=== PATIENT | female | born 1960 | race Caucasian/White ===

== ENCOUNTER 2016-09-13 07:53 | Day surgery (SDC) | payer OTHER ==
[2016-09-13] MEDS ORDERED: LACTATED RINGERS 1,000 ML IV ONE (07:59)
[2016-09-13] MEDS ORDERED: ceFAZolin 1 GM VIAL ONE (08:12)
[2016-09-13] MEDS ORDERED: ACETAMINOPHEN 1,000 MG/100 ML 100 ML IV ONE (08:12)
[2016-09-13] MEDS ORDERED: PROPOFOL 200 MG/20 ML VIAL IVP ONE (09:00)
[2016-09-13] MEDS ORDERED: LIDOCAINE-MPF 2% 5 ML VIAL IM ONE (09:00)
[2016-09-13] MEDS ORDERED: ONDANSETRON 4 MG/2 ML VIAL IVP ONE (09:00)
[2016-09-13] MEDS ORDERED: fentaNYL 100 MCG/2 ML VIAL IVP ONE (09:00)
[2016-09-13] MEDS ORDERED: DEXAMETHASONE 4 MG/ML VIAL IVP ONE (09:00)
[2016-09-13] MEDS ORDERED: MIDAZOLAM 2 MG/2 ML VIAL IVP ONE (09:00)
[2016-09-13] MEDS ORDERED: BUPIVACAINE 0.25% PF 30 ML VIAL SUBQ ONE ×2 (09:08→10:03)
[2016-09-13] MEDS: HYDROmorphone 1 MG/ML SYRINGE ONE ×2 (10:25→10:31)
[2016-09-13] MEDS ORDERED: oxyCOD/ACETAMIN 5 MG/325 MG TABLET PO ONE (10:37)
[2016-09-13] MEDS ORDERED: KETOROLAC 15 MG/ML VIAL ONE (10:38)
== END 2016-09-13 07:54 | disposition home or self-care (01) ==
PROC: 01N50ZZ Release Median Nerve, Open Approach (ICD-10-PCS; principal; 2016-09-13 09:20)
PROC: 0LB60ZZ Excision of Left Lower Arm and Wrist Tendon, Open Approach (ICD-10-PCS; 2016-09-13 09:20)
DX: G56.02 Carpal tunnel syndrome, left upper limb (principal); M67.432 Ganglion, left wrist; I71.4 Abdominal aortic aneurysm, without rupture; E03.9 Hypothyroidism, unspecified; Z87.891 Personal history of nicotine dependence; Z85.01 Personal history of malignant neoplasm of esophagus; Z91.89 Other specified personal risk factors, not elsewhere classified
CPT/HCPCS: 25111; 64721; A9270; J0131; J1170; J7120

== ENCOUNTER 2016-10-09 13:32 | Outpatient (CLI) | payer OTHER | END 2016-10-09 13:33 | disposition home or self-care (01) | DX: I77.810 Thoracic aortic ectasia (principal); I51.7 Cardiomegaly; I35.1 Nonrheumatic aortic (valve) insufficiency ==

== ENCOUNTER 2016-10-09 13:33 | Outpatient (CLI) | payer OTHER | END 2016-10-09 13:34 | disposition home or self-care (01) | DX: I71.2 Thoracic aortic aneurysm, without rupture (principal) ==

== ENCOUNTER 2017-05-20 09:19 | Emergency (ER) | payer OTHER ==
--- NOTE | 2017-05-20 09:46 | ED Physician Documentation ---
PD HPI TRUNK INJURY - Stated complaint Stated Complaint: R SIDE BACK/HIP/RIB PX--FALL - Chief complaint Chief Complaint: General - History obtained from History obtained from: Patient, Family - History of Present Illness Location: Posterior chest, Right chest, Lower back Type of injury: Fall Timing - onset: Enter time (1999), Last night Timing - duration: Hours Timing - details: Abrupt onset, Still present Quality: Pain, Spasm, Sharp Improved by: Rest, Immobilization Worsened by: Moving, Palpating Associated symtptoms: No: Weakness, Numbness, Tingling, Swelling, Discoloration , Feel faint, Syncope Contributing factors: No: Anticoagulated Where injury occured: Home Similar symptoms before: Has not had sx before Recently seen: Not recently seen - Additional information Additional information: 57-year-old female was going down the steps with her socks on her arms full when she went to go around the corner of her steps she slipped on the steps fell landing across a step on her right lower back and chest wall. Review of Systems Constitutional: denies: Fever, Chills, Myalgias Eyes: denies: Decreased vision Ears: denies: Ear pain Nose: denies: Congestion Throat: denies: Sore throat Cardiac: denies: Chest pain / pressure, Palpitations Respiratory: denies: Dyspnea, Cough GI: denies: Abdominal Pain, Nausea, Vomiting : denies: Dysuria, Frequency Skin: denies: Rash, Lesions Musculoskeletal: reports: Back pain. 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 HEENT: Tonsil/Adenoidectomy - Present Medications Home Medications: Ambulatory Orders Medication Instructions Recorded Confirmed Calcium Carbonate [Calcium] 500 mg PO DAILY 08/20/16 05/20/17 Cholecalciferol (Vitamin D3) 1,000 unit PO DAILY 08/20/16 05/20/17 [Vitamin D3] Ferrous Sulfate [Iron] 325 mg PO DAILY 08/20/16 05/20/17 Lansoprazole [Prevacid] 30 mg PO DAILY 08/20/16 05/20/17 Levothyroxine [Synthroid] 100 mcg PO QDAC 08/20/16 05/20/17 Zinc 50 mg PO DAILY 08/20/16 05/20/17 HYDROcod/ACETAM 5/325 [[place] 5/325] 1 - 2 ea PO Q6H PRN #15 tablet 05/20/17 - Allergies Allergies/Adverse Reactions: Allergies Allergy/AdvReac Type Severity Reaction Status Date / Time latex Allergy Itching Verified 05/20/17 09:39 - Social History Does the pt smoke?: No Smoking Status: Never smoker Does the pt drink ETOH?: Yes Does the pt have substance abuse?: No PD ED PE NORMAL - Vitals Vital signs reviewed: Yes (hypertensive ) - General General: No acute distress, Well developed/nourished - HEENT HEENT: Atraumatic, PERRL - Neck Neck: Supple, no meningeal sign - Cardiac Cardiac: RRR, Other (1/6 holosystolic murmer at LSB ) - Respiratory Respiratory: No respiratory distress, Clear bilaterally, Other (There is specific tenderness to the right lower chest wall laterally ) - Abdomen Abdomen: Soft, Non tender - Back Back: No CVA TTP, Other (There is specific tenderness and bruising along the right lower lumbar spine with a linear ecchymosis consistent with the mechanism the patient gave. ) - Derm Derm: Normal color, Warm and dry, No rash - Extremities Extremities: No deformity, No edema - Neuro Neuro: No motor deficit, No sensory deficit - Psych Psych: Normal mood, Normal affect Results - Vitals Vitals: Vital Signs - 24 hr 05/20/17 05/20/17 09:30 10:41 Temperature 36.6 C Heart Rate 84 70 Respiratory 19 16 Rate Blood Pressure 149/110 H 125/74 O2 Saturation 100 Oxygen O2 Source Room air - Rads (name of study) Ribs with PA chest right Radiology: Prelim report reviewed (Impression: Postsurgical changes right fifth posterior rib. No acute right rib or lung pathology. Changes in the mediastinum which may reflect prior esophageal and/or aortic surgery. Heart size difficult to assess. Bilateral breast implants.), EMP read indepedently, See rad report Lumbar spine 2 view Radiology: Prelim report reviewed (Impression: 1. 9 mm anterior listhesis of L4 on L5 with degenerative disc space narrowing at this level. 2. Age- indeterminate right L2 and L3 transverse process fractures. 3. Bilateral breast implants. 4. Surgical clips GE junction and changes in the mediastinum likely related to prior esophageal or aortic surgery.) PD MEDICAL DECISION MAKING - ED course Complexity details: reviewed results, re-evaluated patient, considered differential, d/w patient, d/w family ED course: 57-year-old female with a fall on ice stairway has fractured to her vertebral processes and is not have fracture of ribs.Is averse to taking pain medications. I discussed that with the patient the usual course of chest wall contusion rib contusion and lumbar fracture. I have asked the patient to return to the emergency department should she develop enough pain in her back that she requires a brace. Departure - Departure Disposition: 01 Home, Self Care Clinical Impression: Multiple transverse process fractures Chest wall contusion Qualifiers: Encounter type: initial encounter Laterality: right Qualified Code(s): S20.211A - Contusion of right front wall of thorax, initial encounter Condition: Stable Instructions: ED Fx Transverse Spinous Process, ED Contusion Chest Wall Follow-Up: Bryan Louis MD [Primary Care Provider] - Prescriptions: HYDROcod/ACETAM 5/325 [[place] 5/325] 1 - 2 ea PO Q6H PRN #15 tablet PRN Reason: Pain Comments: Today in the Emergency Department your blood pressure was elevated. This can happen from the stress of the visit itself, from a current illness or circumstance or from uncontrolled hypertension. If you take blood pressure medications take your usual mediations, have your blood pressure re-checked in an appropriate setting and follow up any elevation with your primary care doctor.
--- NOTE | 2017-05-20 10:33 | XRAY Preliminary Report ---
Exam: XR RIBS W/PA CHEST RT IMPRESSION: Postsurgical changes right fifth posterior rib. No acute right rib or lung pathology. Hien nges in the mediastinum which may reflect prior esophageal and/or aortic surgery. Heart size difficul t to assess. Bilateral breast implants. [facility] SITE ID: [id number]
--- NOTE | 2017-05-20 10:36 | XRAY Report ---
EXAM: RIGHT RIB RADIOGRAPHY EXAM DATE: 05/20/2017 10:09 AM. CLINICAL HISTORY: Right posterior lower rib contusion/pain. Esophageal cancer. Known thoracic aneurys m. COMPARISON: None. TECHNIQUE: 1 view of the chest and 3 views of the right ribs. FINDINGS: Bones: Postsurgical deformity/absence right fifth posterior rib. No acute fracture or bone lesion. Lungs: No focal opacities. No pneumothorax. No pleural effusions. Mediastinum: Surgical clips projected over the mediastinum and GE junction region. Changes in the med iastinum consistent with esophageal surgery. Heart size difficult to assess. Other: Bilateral breast implants. IMPRESSION: Postsurgical changes right fifth posterior rib. No acute right rib or lung pathology. Hien nges in the mediastinum which may reflect prior esophageal and/or aortic surgery. Heart size difficul t to assess. Bilateral breast implants. [facility] Referring Provider Line: [phone] SITE ID: [id number]
[2017-05-20 10:42] VITALS: BP 125/74
--- NOTE | 2017-05-20 10:45 | XRAY Preliminary Report ---
Exam: XR LUMBAR SPINE 2 VIEW IMPRESSION: 1. 9 mm anterior listhesis L4 on L5 with degenerative disk space narrowing at this level. 2. Age-indeterminate right L2 and L3 transverse process fractures. 3. Bilateral breast implants. 4. Surgical clips GE junction and changes in the mediastinum likely related to prior esophageal or ao rtic surgery. [facility] SITE ID: [id number]
--- NOTE | 2017-05-20 10:48 | XRAY Report ---
EXAM: LUMBOSACRAL SPINE RADIOGRAPHY EXAM DATE: 05/20/2017 10:09 AM. CLINICAL HISTORY: Fall, pain L4 level COMPARISONS: None. TECHNIQUE: 2 views. FINDINGS: Alignment: Grade 1 anterior listhesis L4 on L5 of approximately 9 mm. Alignment otherwise unremarkabl e. Bones: Five [id number] lumbar vertebral bodies are present. Right L2 and L3 age-indeterminate tr ansverse process fractures. Disks: Advanced L4-L5 disk space narrowing. Diskal calcification at L1-L2. Facets: Moderate degenerative change L4-L5 facets. Sacroiliac Joints: Unremarkable. Soft Tissues: Bilateral breast implants. Surgical clips GE junction. Apparent mediastinal widening ma y be related to prior esophageal or aortic surgery. IMPRESSION: 1. 9 mm anterior listhesis L4 on L5 with degenerative disk space narrowing at this level. 2. Age-indeterminate right L2 and L3 transverse process fractures. 3. Bilateral breast implants. 4. Surgical clips GE junction and changes in the mediastinum likely related to prior esophageal or ao rtic surgery. [facility] Referring Provider Line: [phone] SITE ID: [id number]
== END 2017-05-20 12:25 | disposition home or self-care (01) ==
LOC: ED 09:19
DX: S32.029A Unspecified fracture of second lumbar vertebra, initial encounter for closed fracture (principal); S32.039A Unspecified fracture of third lumbar vertebra, initial encounter for closed fracture; S20.211A Contusion of right front wall of thorax, initial encounter; W10.8XXA Fall (on) (from) other stairs and steps, initial encounter; R03.0 Elevated blood-pressure reading, without diagnosis of hypertension; E03.9 Hypothyroidism, unspecified; K21.9 Gastro-esophageal reflux disease without esophagitis; Z85.01 Personal history of malignant neoplasm of esophagus
CPT/HCPCS: 72100; 99283

== ENCOUNTER 2018-03-20 12:32 | Emergency (ER) | payer OTHER ==
[2018-03-20] MEDS ORDERED: TETANUS/DIPHTHERIA/PERTUSSIS 0.5 ML SYRINGE IM ONE (14:01)
[2018-03-20] MEDS ORDERED: BACITRACIN OINT TOP STA (14:25)
--- NOTE | 2018-03-20 14:27 | ED Physician Documentation ---
PD HPI Fall - Stated complaint Stated Complaint: COCHRAN LAC/HEAD INJURY - Chief complaint Chief Complaint: Laceration - History obtained from History obtained from: Patient - History of Present Illness Mechanism of injury: Tripped Fall distance: Standing position Where injury occurred: Park Injury(ies) location: Head, Right Lower Extremity Associated symptoms: No: LOC, Neck pain, Nausea / vomiting Similar symptoms before: Has not had sx before - Additional information Additional information: The patient is a 57-year-old female who was at the park with her black Labrador when he pulled on the leash while she was paying attention to something else, causing her to stumble and fall, hitting her head on concrete. She denies loss of consciousness, nausea or vomiting. In addition to hitting her head she also impacted her right lower extremity on a protruding piece of metal. She has been ambulatory since the incident occurred. She is uncertain of her last tetanus booster. Review of Systems Constitutional: denies: Fever Eyes: denies: Decreased vision Ears: denies: Tinnitus/ringing Nose: denies: Congestion Cardiac: denies: Chest pain / pressure Respiratory: denies: Dyspnea GI: denies: Abdominal Pain, Nausea, Vomiting Skin: reports: Abrasion (s) (right knee.), Laceration (s) (Right cochran.) Musculoskeletal: denies: Neck pain, Back pain Neurologic: reports: Head injury. 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 HEENT: Tonsil/Adenoidectomy - Present Medications Home Medications: Ambulatory Orders Medication Instructions Recorded Confirmed Calcium Carbonate [Calcium] 500 mg PO DAILY 08/20/16 05/20/17 Cholecalciferol (Vitamin D3) 1,000 unit PO DAILY 08/20/16 05/20/17 [Vitamin D3] Ferrous Sulfate [Iron] 325 mg PO DAILY 08/20/16 05/20/17 Lansoprazole [Prevacid] 30 mg PO DAILY 08/20/16 05/20/17 Levothyroxine [Synthroid] 100 mcg PO QDAC 01/10/17 10/10/17 Zinc 50 mg PO DAILY 08/20/16 05/20/17 HYDROcod/ACETAM 5/325 [[place] 5/325] 1 - 2 ea PO Q6H PRN #15 tablet 05/20/17 - Allergies Allergies/Adverse Reactions: Allergies Allergy/AdvReac Type Severity Reaction Status Date / Time latex Allergy Itching Verified 03/20/18 12:48 - Social History Does the pt smoke?: No Smoking Status: Never smoker Does the pt drink ETOH?: Yes Does the pt have substance abuse?: No PD ED PE NORMAL - Vitals Vital signs reviewed: Yes (Systolic hypertension initially.) - General General: Alert and oriented X 3, Well developed/nourished - HEENT HEENT: PERRL, EOMI, Ears normal, Pharynx benign, Other (There is a scalp hematoma on the left frontal region of the scalp. There is no break in the integument, and no bony tenderness to palpation.) - Neck Neck: No bony TTP, Other (Full cervical range of motion without tenderness.) - Cardiac Cardiac: RRR - Respiratory Respiratory: No respiratory distress, Clear bilaterally - Abdomen Abdomen: Soft, Non tender - Back Back: No spinal TTP - Derm Derm: No rash - Extremities Extremities: Other (Superficial abrasions are noted at the infrapatellar aspect of the right leg. There is a 4 cm irregularly shaped laceration of the right cochran.) - Neuro Neuro: Alert and oriented X 3, No motor deficit, No sensory deficit Results - Vitals Vitals: Oxygen O2 Source Room air Procedures - Laceration (location) right cochran Length in cm: 4 Wound type: Irregular, Into subcut fat Neurovascular status: Sensory intact, Motor intact, Vascular intact Anesthesia: Lidocaine 1% with epi Wound Preparation: Hibiclens, Irrigated copiously NS, Wound explored, To the base. No: FB identified Skin layer closure: Nylon, Interrupted, Size #-0 - enter number (5), Sutures - enter # (6) Other: Patient tolerated well, No complications, Neurovascular intact, Dressing applied, Tetanus booster given Complexity: Simple PD MEDICAL DECISION MAKING - ED course Complexity details: re-evaluated patient, considered differential, d/w patient, d/w family ED course: The patient's presentation is significant for scalp contusion, without evidence of intracranial head injury. In addition she has a laceration and abrasion to her right lower extremity. Treatment in the emergency department included repair of the laceration after local anesthetic and thorough cleaning of the wound. Antibiotic ointment and gauze dressing was applied. Tetanus booster was administered. I discussed with the patient and her the expected course of injury, appropriate wound care and timing for suture removal, as well as potentially worrisome signs or symptoms that should prompt reevaluation in the emergency department. - Sepsis Event Vital Signs: Oxygen O2 Source Room air Departure - Departure Disposition: 01 Home, Self Care Clinical Impression: Scalp contusion Qualifiers: Encounter type: initial encounter Qualified Code(s): S00.03XA - Contusion of scalp, initial encounter Laceration of leg Qualifiers: Encounter type: initial encounter Laterality: right Qualified Code(s): S81.811A - Laceration without foreign body, right lower leg, initial encounter Condition: Stable Instructions: ED Contusion Scalp, ED Laceration Ext Sutr Stap Tape Follow-Up: DEBI HARGROVE DO [Primary Care Provider] - Comments: Keep the wound clean, and apply antibiotic ointment daily. You can use Tylenol or ibuprofen if needed for discomfort. Apply ice pack to the scalp contusion intermittently for the next day or 2. Follow-up for suture removal in 10-12 days. Return to the emergency department if you develop increasing headache, persistent vomiting, or any sign of infection. Discharge Date/Time: 03/20/18 14:49
[2018-03-20 14:48] VITALS: BP 151/78
== END 2018-03-20 14:49 | disposition home or self-care (01) ==
LOC: ED 12:32
DX: S00.03XA Contusion of scalp, initial encounter (principal); S81.811A Laceration without foreign body, right lower leg, initial encounter; X50.9XXA Other and unspecified overexertion or strenuous movements or postures, initial encounter; W01.118A Fall on same level from slipping, tripping and stumbling with subsequent striking against other sharp object, initial encounter; W54.8XXA Other contact with dog, initial encounter; Y92.830 Public park as the place of occurrence of the external cause; Z23 Encounter for immunization
CPT/HCPCS: 12002; 90471; 90715; 99282; 99283; A9270

== ENCOUNTER 2019-04-27 13:46 | Outpatient (CLI) | payer OTHER | END 2019-04-27 13:47 | disposition critical access hospital (66) | LOC: EMS 13:46 | PROVIDERS: ATTEND Surgery | DX: R07.89 Other chest pain (principal) | CPT/HCPCS: A0425; A0427 ==

== ENCOUNTER 2019-04-27 14:06 | Emergency (ER) | payer OTHER ==
[2019-04-27 14:16] VITALS: BP 150/77
--- NOTE | 2019-04-27 14:20 | ED Physician Documentation ---
History of Present Illness - Stated complaint Stated Complaint: CP - Chief complaint Chief Complaint: Cardiac - History obtained from History obtained from: Patient - History of Present Illness Timing: Other (58-year-old woman with history of known aortic aneurysm which has been lost to follow-up for the last 5 years, cardiac murmur. For the last 4 days or so she has had intermittent substernal chest pain. It was bad over the weekend but better with exertion. It was not really significant yesterday but a little worse today now radiating to the left shoulder. She denies shortness of breath or nausea. 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 HEENT: Tonsil/Adenoidectomy - Present Medications Home Medications: Ambulatory Orders Medication Instructions Recorded Confirmed Calcium Carbonate [Calcium] 500 mg PO DAILY 08/20/16 05/20/17 Cholecalciferol (Vitamin D3) 1,000 unit PO DAILY 08/20/16 05/20/17 [Vitamin D3] Ferrous Sulfate [Iron] 325 mg PO DAILY 08/20/16 05/20/17 Lansoprazole [Prevacid] 30 mg PO DAILY 08/20/16 05/20/17 Levothyroxine [Synthroid] 100 mcg PO QDAC 08/20/16 05/20/17 Zinc 50 mg PO DAILY 08/20/16 05/20/17 HYDROcod/ACETAM 5/325 [[place] 5/325] 1 - 2 ea PO Q6H PRN #15 tablet 05/20/17 - Allergies Allergies/Adverse Reactions: Allergies Allergy/AdvReac Type Severity Reaction Status Date / Time latex Allergy Itching Verified 04/27/19 14:09 - Social History Does the pt smoke?: No Smoking Status: Never smoker Does the pt drink ETOH?: Yes Does the pt have substance abuse?: No PD ED PE NORMAL - Vitals Vital signs reviewed: Yes - General General: Alert and oriented X 3, No acute distress - HEENT HEENT: PERRL, EOMI - Neck Neck: Supple, no meningeal sign, No bony TTP - Cardiac Cardiac: RRR, Other (Squeaky systolic murmur heard best at the left upper sternal border, 2 out of 6, loud S2.) - Respiratory Respiratory: No respiratory distress, Clear bilaterally - Abdomen Abdomen: Soft, Non tender - Back Back: No CVA TTP, No spinal TTP - Extremities Extremities: No edema, No calf tenderness / cord - Neuro Neuro: Alert and oriented X 3, Normal speech Results - Vitals Vitals: Vital Signs - 24 hr 04/27/19 14:09 Temperature 36.5 C Heart Rate 78 Respiratory 14 Rate Blood Pressure 150/77 H O2 Saturation 99 Oxygen O2 Source Room air - EKG (time done) 1416 Rate: Rate (enter#) (71) Rhythm: NSR [place]: Normal Intervals: Normal [place] QRS: Normal Ischemia: Normal ST segments Computer interpretation: Agree with computer - Labs Labs: Laboratory Tests 04/27/19 04/27/19 04/27/19 14:25 14:25 14:25 WBC 6.1 RBC 3.58 L Hgb 12.0 Hct 36.0 L MCV 100.6 H MCH 33.5 H MCHC 33.3 RDW 12.2 Plt Count 187 MPV 9.3 Neut # (Auto) 4.4 Lymph # (Auto) 1.0 L [place] # (Auto) 0.5 Eos # (Auto) 0.2 Baso # (Auto) 0.0 Absolute Nucleated RBC 0.00 Nucleated RBC % 0.0 Sodium 138 Potassium 3.8 Chloride 99 L Carbon Dioxide 30 Anion Gap 9.0 BUN 17 Creatinine 0.9 Estimated GFR (MDRD) 65 L Glucose 178 H Calcium 10.0 Total Bilirubin 0.6 AST 43 H ALT 25 Alkaline Phosphatase 53 Troponin I High Sens 5.1 Total Protein 6.9 Albumin 4.2 Globulin 2.7 Albumin/Globulin Ratio 1.6 Lipase 34 PD MEDICAL DECISION MAKING - ED course ED course: 3 days of atypical waxing and waning nonexertional chest pain in this lady with a known aortic aneurysm and a history of esophageal cancer status post pull-up. CT shows her aneurysm is not dissected, 4.5 cm. She was advised that she needs to continue surveillance and see a cardiothoracic surgeon as it approaches 5.5 cm. We will perform a second troponin in the department. She did not want to wait for the results and I will call her if positive. The understands that if it is positive he will need to return immediately. Otherwise she has plans to see her physician tomorrow. Departure - Departure Disposition: Home, Self Care Clinical Impression: Chest pain Qualifiers: Chest pain type: chest pain on breathing Qualified Code(s): R07.1 - Chest pain on breathing; R07.81 - Pleurodynia Aortic aneurysm Qualifiers: Aortic location: thoracic aorta Presence of rupture: without rupture Qualified Code(s): I71.2 - Thoracic aortic aneurysm, without rupture Condition: Good Record reviewed to determine appropriate education?: Yes Instructions: ED Chest Pain NonCardiac Comments: As discussed you need a referral eventually to see a cardiothoracic surgeon when your aortic aneurysm approaches 5.5 cm. In the interim continue surveillance for this. Follow-up with your doctor tomorrow.
[2019-04-27 14:33] LABS: BASOPHILS % (AUTO) 0.5 %; EOSINOPHILS # (AUTO) 0.2 10^3/uL (0.0-0.7); EOSINOPHILS % (AUTO) 2.6 %; MEAN CORPUSCULAR HEMOGLOBIN 33.5 pg (27.0-31.0); MEAN CORPUSCULAR HGB CONC 33.3 g/dL (32.0-36.0); MEAN CORPUSCULAR VOLUME 100.6 fL (81.0-99.0); MEAN PLATELET VOLUME 9.3 fL (7.9-10.8); MONOCYTES # (AUTO) 0.5 10^3/uL (0.0-1.0); MONOCYTES % (AUTO) 7.8 %; NEUTROPHILS # (AUTO) 4.4 10^3/uL (1.5-6.6); NEUTROPHILS % (AUTO) 71.6 %; PLT - PLATELET COUNT 187 10^3/uL (130-450); RED BLOOD COUNT 3.58 10^6/uL (4.20-5.40); RED CELL DISTRIBUTION WIDTH 12.2 % (12.0-15.0); WHITE BLOOD COUNT 6.1 x10^3/uL (4.8-10.8)
[2019-04-27] MEDS ORDERED: IOVERSOL 320 100 ML VIAL IVP ONE ×2 (14:33→16:20)
[2019-04-27 14:44] LABS: ALBUMIN 4.2 g/dL (3.2-5.5); ALBUMIN/GLOBULIN RATIO 1.6 (1.0-2.2); BILIRUBIN,TOTAL 0.6 mg/dL (0.2-1.0); CREATININE 0.9 mg/dL (0.4-1.0); TOTAL PROTEIN 6.9 g/dL (6.7-8.2)
--- NOTE | 2019-04-27 16:21 | CT Report ---
Reason: Aorta protocol, chest pain, known aneurysm Procedure Date: 04/27/2019 Accession Number: [id number] / [id number] Procedure: CT - ANGIO CHEST W/WO CPT Code: FULL RESULT: EXAM: CTA CHEST EXAM DATE: 04/27/2019 03:47 PM. CLINICAL HISTORY: Chest pain. Known aneurysm. COMPARISON: 05/20/2017. TECHNIQUE: Prior to and following intravenous administration of OPTI 320 80ML, multiplanar 3D/MIP reconstruction of the thoracic aorta was performed. In accordance with CT protocol optimization, one or more of the following dose reduction techniques were utilized for this exam: automated exposure control, adjustment of mA and/or KV based on patient size, or use of iterative reconstructive technique. FINDINGS: Vascular Structures: Unenhanced images are without evidence for intramural or mediastinal hematoma. Thoracic aortic calcified plaque. Postcontrast there is adequate enhancement of the thoracic aorta. No dissection. Great vessels are widely patent. Noncalcified atheromatous plaque is seen in the descending thoracic aorta and right common carotid artery. No evidence of pulmonary embolus. The sinuses of Valsalva measure 3.6 cm. The sinotubular junction measures 3.2 cm. The proximal ascending thoracic aorta measures 4.5 cm. The distal ascending thoracic aorta measures 4.1 cm. The aortic arch measures 2.8 cm. The proximal descending thoracic aorta measures 2.4 cm. The distal descending thoracic aorta measures 2.3 cm. Lungs/Pleura: No endobronchial obstruction. Scarring is seen in the medial right upper lobe and right lower lobe with associated volume loss and atelectasis. Scar/atelectasis in the medial left lower lobe. No consolidation. No pneumothorax. No vascular congestion. Mediastinum: Heart size upper normal. Trace pericardial effusion. Changes are seen from esophagectomy and gastric pull-up with multiple surgical clips in the mediastinum. Thyroid gland is small. No enlarged mediastinal or hilar lymph nodes. Upper Abdomen: Included portions of the liver, spleen, adrenals, left kidney, pancreas visualized upper abdominal bowel are unremarkable. Surgical clips seen by the GE junction. Surgical clips are seen by the GE junction. Other: Degenerative changes of the thoracic spine. No acute osseous abnormalities are identified. Resection of the right fifth rib is seen likely postsurgical. There are peripherally calcified breast implants present. IMPRESSION: 1. No evidence of aortic dissection. Aneurysmal dilatation of the ascending aorta measuring on the current study 4.5 cm. Mild atheromatous disease of the thoracic aorta. 2. No evidence of pulmonary embolus. 3. Status post esophagectomy and gastric pull-up. 4. Medial right upper lobe and medial right lower lobe and left lower lobe scar/atelectasis. [facility]
== END 2019-04-27 16:49 | disposition home or self-care (01) ==
LOC: EDUNIT# → ED 14:06
DX: R07.1 Chest pain on breathing (principal); R07.81 Pleurodynia; I71.2 Thoracic aortic aneurysm, without rupture; R01.1 Cardiac murmur, unspecified; Z85.01 Personal history of malignant neoplasm of esophagus
CPT/HCPCS: 36415; 71275; 80053; 83690; 84484; 85025; 93005; 99284; Q9967

== ENCOUNTER 2021-09-05 09:11 | Outpatient (CLI) | payer OTHER ==
--- NOTE | 2021-09-12 07:27 | Mammography Report ---
BILATERAL DIGITAL SCREENING MAMMOGRAM 3D/2D WITH AUGMENTATION: 09/05/2021 CLINICAL: Routine screening. Comparison is made to exams dated: 07/12/2011 and 06/10/2011 [facility]. There are scatt ered fibroglandular elements in both breasts. Bilateral breast implants are present. No significant masses, calcifications, or other findings are seen in either breast. There has been no significant interval change. IMPRESSION: NEGATIVE There is no mammographic evidence of malignancy. A 1 year screening mammogram is recommended. This exam was interpreted at Station ID: [id number]. NOTE: For mammograms, a report in lay terms will be sent to the patient. Approximately 15% of breast malignancies will not be visualized mammographically. In the management of a palpable breast mass, a negative mammogram must not discourage biopsy of a clinically suspicious lesion. Electronically Signed By: [place] M.D. ar/cicirad:09/11/2021 09:49:34 ACR BI-RADS Category 1: Negative 3341F PARENCHYMAL PATTERN: (A) - The breast(s) demonstrate(s) scattered fibroglandular densities. BI-RADS CATEGORY: (1) - 1 RECOMMENDATION: (ANNUAL) - Recommend routine annual screening mammography. [id number] 1 year screening LATERALITY: (B)
== END 2021-09-05 09:12 | disposition home or self-care (01) ==
LOC: DI.N 09:11
DX: Z12.31 Encounter for screening mammogram for malignant neoplasm of breast (principal)

== ENCOUNTER 2023-02-22 12:28 | Emergency (ER) | payer OTHER ==
--- NOTE | 2023-02-22 13:16 | XRAY Report ---
PROCEDURE: Hip w/Pelvis 2-3V RT INDICATIONS: GLF TECHNIQUE: AP pelvis with lateral view(s) of the hip(s). COMPARISON: None. FINDINGS: Bones: There is a subcapital right femoral neck fracture with mild impaction of the distal fracture fragments. Lower lumbar spondylosis. Degenerative changes of the bilateral hips. Degenerative changes of the bilateral sacroiliac joints. Soft tissues: No suspicious soft tissue calcifications or masses. IMPRESSION: Mildly impacted subcapital right femoral neck fracture. Reviewed by: Ramon Bueno MD on 02/22/2023 12:14 PM REBECA Approved by: Ramon Bueno MD on 02/22/2023 12:14 PM REBECA Station ID: [id number]
[2023-02-22 13:23] LABS: BASOPHILS # (AUTO) 0.1 10^3/uL (0.0-0.1); BASOPHILS % (AUTO) 0.5 %; EOSINOPHILS # (AUTO) 0.1 10^3/uL (0.0-0.7); HCT - HEMATOCRIT 38.5 % (37.0-47.0); HGB - HEMOGLOBIN 12.9 g/dL (12.0-16.0); LYMPHOCYTES # (AUTO) 0.6 10^3/uL (1.5-3.5); LYMPHOCYTES % (AUTO) 6.5 %; MEAN CORPUSCULAR HEMOGLOBIN 32.9 pg (27.0-31.0); MEAN CORPUSCULAR HGB CONC 33.5 g/dL (32.0-36.0); MEAN CORPUSCULAR VOLUME 98.2 fL (81.0-99.0); MEAN PLATELET VOLUME 9.4 fL (7.9-10.8); MONOCYTES # (AUTO) 0.4 10^3/uL (0.0-1.0); MONOCYTES % (AUTO) 4.3 %; NEUTROPHILS # (AUTO) 8.6 10^3/uL (1.5-6.6); NEUTROPHILS % (AUTO) 87.3 %; PLT - PLATELET COUNT 359 10^3/uL (130-450); RED BLOOD COUNT 3.92 10^6/uL (4.20-5.40); RED CELL DISTRIBUTION WIDTH 12.1 % (12.0-15.0); WHITE BLOOD COUNT 9.8 x10^3/uL (4.8-10.8)
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
[2023-02-22 13:33] LABS: CALCIUM 9.7 mg/dL (8.5-10.3); INR 1.2 (0.8-1.2); POTASSIUM 3.9 mmol/L (3.5-5.0); PT - PROTHROMBIN TIME 13.5 secs (9.9-12.6)
--- OUTSIDE RECORDS SUMMARY | 2023-02-22 13:45 | EXTERNAL MEDICAL SUMMARY RPT | Continuity of Care Document ---
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 Name Role Phone Unavailable Unavailable Unavailable Chrystal Olivares Unavailable Unavailable Allergies and Intolerances date description facility reaction severity (no date) latex [facility] (no reaction) (no se verity) Medications date description facility 2023-02-09 00:00 Apixaban [facility] 2023-02-09 00:00 Magnesium Oxide [facility] 2023-02-09 00:00 Thiamine Mononitrate (Vit B1) I [facility] 2023-02-08 00:00 Pantoprazole [facility] 2023-02-09 00:00 Amiodarone [facility] 2023-02-08 00:00 Levothyroxine [facility] Problems date description facility 2023-02-08 00:00 Atrial fibrillation with rapid ventricular response [facility] 2023-02-08 00:00 Hypoxia [facility] 2023-02-08 00:00 Status of breast implant [facility] 2023-02-09 10:27 Unspecified atrial fibrillation [facility] 2023-02-09 12:04 Unspecified atrial fibrillation [facility] 2023-02-09 13:00 Unspecified atrial fibrillation [facility] 2023-02-09 14:29 Unspecified atrial fibrillation [facility] 2023-02-10 08:24 Unspecified atrial fibrillation [facility] 2023-02-10 09:43 Unspecified atrial fibrillation [facility] 2023-02-14 09:33 Unspecified atrial fibrillation [facility] 2023-02-15 09:33 Unspecified atrial fibrillation [facility] Procedures date description facility 2023-02-08 00:00 X-ray of chest, single view [facility] 2023-02-08 00:00 Complete Doppler echocardiograp [facility] Results/Labs test date facility value unit notes Social History date description facility 2023-02-08 00:00 Never smoked tobacco (finding) [facility] 2023-02-08 00:00 Ex-smoker (finding) [facility] Vital Signs date measurement value units 2023-02-08 00:00 BMI 19.7 kg/m2 2023-02-08 00:00 BP_diastolic 59 mmHg 2023-02-08 00:00 BP_systolic 115 mmHg 2023-02-08 00:00 heart_rate 72 /min 2023-02-08 00:00 height_metric 162.56 cm 2023-02-08 00:00 height_standard 64 in 2023-02-08 00:00 o2_saturation 96 % 2023-02-08 00:00 respiration_rate 22 /min 2023-02-08 00:00 temperature_metric 36.61 C 2023-02-08 00:00 temperature_standard 97.9 F 2023-02-08 00:00 weight_metric 52.16 kg 2023-02-08 00:00 weight_standard 114.99 lb 2023-02-09 00:00 BP_diastolic 65 mmHg 2023-02-09 00:00 BP_systolic 133 mmHg 2023-02-09 00:00 heart_rate 71 /min 2023-02-09 00:00 o2_saturation 98 % 2023-02-09 00:00 respiration_rate 18 /min 2023-02-09 00:00 temperature_metric 36.22 C 2023-02-09 00:00 temperature_standard 97.2 F
--- NOTE | 2023-02-22 14:18 | XRAY Report ---
PROCEDURE: Chest 1 View X-Ray INDICATIONS: glf; anticoagulated TECHNIQUE: One view of the chest was acquired. COMPARISON: None. FINDINGS: Surgical changes and devices: Bilateral breast implants are in place. Surgical clips project over th e left upper abdomen.. Lungs and pleura: No pleural effusions or pneumothorax. Lungs are clear. Mediastinum: Mediastinal contours appear normal. Heart size is normal. Bones and chest wall: No suspicious bony lesions. Overlying soft tissues appear unremarkable. IMPRESSION: No acute cardiopulmonary process. No focal airspace disease. No acute fracture identified. Reviewed by: Ramon Bueno MD on 02/22/2023 1:16 PM REBECA Approved by: Ramon Bueno MD on 02/22/2023 1:16 PM AKDT Station ID: [id number]
[2023-02-22] MEDS ORDERED: HYDROmorphone 1 MG/ML CARPUJECT IVP STA ×2 (14:24→17:43)
--- NOTE | 2023-02-22 14:51 | CT Report ---
PROCEDURE: HEAD WO INDICATIONS: anticoagulated; glf TECHNIQUE: Noncontrast 4.5 mm thick angled axial sections acquired from the foramen magnum to the vertex. For r adiation dose reduction, the following was used: automated exposure control, adjustment of mA and/or kV according to patient size. COMPARISON: None. FINDINGS: Image quality: Excellent. CSF spaces: Basal cisterns are patent. No extra-axial fluid collections. Ventricles are normal in size and shape. Brain: No midline shift. No intracranial masses or hemorrhage. [place]ley-white matter interface is norm al. Skull and face: Calvarium and visualized facial bones are intact, without suspicious lesions. Sinuses: Visualized sinuses and mastoids are clear. IMPRESSION: No acute intracranial pathology. No acute calvarial fracture. Age-related senescent changes and sequela of chronic small vessel ischemic disease. . Reviewed by: Ramon Bueno MD on 02/22/2023 1:50 PM REBECA Approved by: Ramon Bueno MD on 02/22/2023 1:50 PM AKDT Station ID: [id number]
[2023-02-22 17:51] VITALS: BP 154/66
== END 2023-02-22 18:00 | disposition short-term general hospital (02) ==
LOC: ED 12:28
DX: S72.011A Unspecified intracapsular fracture of right femur, initial encounter for closed fracture (principal); W17.81XA Fall down embankment (hill), initial encounter; Y93.02 Activity, running; Y92.096 Garden or yard of other non-institutional residence as the place of occurrence of the external cause; I48.91 Unspecified atrial fibrillation; Z79.01 Long term (current) use of anticoagulants; Z79.899 Other long term (current) drug therapy
CPT/HCPCS: 36415; 70450; 71045; 73502; 80048; 85025; 85610; 93005; 96374; 96376; 99284; 99285; J1170